=== PATIENT | female | born 1985 | race Caucasian/White ===

== ENCOUNTER 2019-03-12 19:32 | Emergency (ER) | payer MEDICAID ==
[~2019-03-12] VITALS: Ht 152.4 cm; Wt 59.0 kg
[~2019-03-12 19:32] MED LIST: CEFP200 PO; METR59TL; Zofran Odt8 MG SL
[2019-03-12] MEDS ORDERED: SERT25 PO (20:01)
[2019-03-12 20:39] LABS: Source, Urine Clean Catch
[2019-03-12 20:42] LABS: Bilirubin, Urine Neg (Neg); Blood, Urine 5+ (Neg); Glucose Qualitative, Urine Neg (Neg); Ketones, Urine 1+ (Neg); Leukocyte Esterase, Urine 3+ (Neg); Nitrite, Urine Pos (Neg); Protein, Urine 3+ (Neg); Specific Gravity, Urine 1.015 (1.003-1.022); Urobilinogen, Urine 1+ (Normal)
[2019-03-12 20:51] LABS: Appearance, Urine Cloudy (Clear); Color, Urine Amber (P-Yellow); White Blood Cells, Urine TNTC /hpf (0-5)
[2019-03-12 20:52] LABS: Bacteria Many /hpf; Squamous Epithelial Cells Mod /hpf (Few)
[2019-03-12] MEDS ORDERED: CEFD300 PO (21:28)
== END 2019-03-12 22:20 | disposition home or self-care (01) ==
LOC: ER 19:32
PROVIDERS: Physician Assistant
DX: N12 Tubulo-interstitial nephritis, not specified as acute or chronic (principal); N93.9 Abnormal uterine and vaginal bleeding, unspecified; F32.9 Major depressive disorder, single episode, unspecified; Z88.1 Allergy status to other antibiotic agents; Z79.899 Other long term (current) drug therapy
CPT/HCPCS: 81001; 87077; 87086; 87186; 96365; 99283-25; J0696

== ENCOUNTER → 2019-07-28 | Outpatient (CLI) | payer OTHER ==
[~2019-07-28] MED LIST changes: +CEFD300 PO; +SERT25 PO
== END | disposition home or self-care (01) ==
LOC: LAB 09:40 → LAB SHORT 09:40
DX: R30.0 Dysuria (principal)
CPT/HCPCS: 87077; 87086; 87186

== ENCOUNTER → 2021-07-13 | Outpatient (CLI) | payer OTHER ==
[2021-07-16 15:10] LABS: HPV 16 Negative (Negative); HPV 18 Negative (Negative); HPV OTHER HR TYPES Negative (Negative)
== END | disposition home or self-care (01) ==
LOC: LAB SHORT 08:50
PROVIDERS: Student in an Organized Health Care Education/Training Program
DX: Z09 Encounter for follow-up examination after completed treatment for conditions other than malignant neoplasm (principal); Z87.42 Personal history of other diseases of the female genital tract
CPT/HCPCS: 87624; 88175

== ENCOUNTER → 2022-11-01 | Outpatient (CLI) | payer OTHER ==
[2022-11-02 11:12] LABS: Candida species (DNA Probe) Negative (NEGATIVE); G. vaginalis (DNA Probe) Positive (NEGATIVE); T. vaginalis (DNA Probe) Negative (NEGATIVE)
== END | disposition home or self-care (01) ==
LOC: LAB 17:30 → LAB SHORT 17:30
PROVIDERS: Nurse Practitioner
DX: N89.8 Other specified noninflammatory disorders of vagina (principal)
CPT/HCPCS: 87480; 87510; 87660

== ENCOUNTER → 2023-08-03 | Outpatient (CLI) | payer OTHER ==
[2023-08-03 17:28] LABS: BASOPHILS ABSOLUTE AUTO 0.05 K/mm3 (0.00-0.23); BASOPHILS PERCENT AUTO 1 % (0-2); EOSINOPHILS PERCENT AUTO 4 % (0-6); Hematocrit 37.5 % (33.0-51.0); Hemoglobin 12.3 g/dL (11.5-16.0); IMMATURE GRAN ABSOLUTE AUTO 0.02 K/mm3 (0.00-0.10); IMMATURE GRAN PERCENT AUTO 0 % (0-1); LYMPHOCYTES ABSOLUTE AUTO 2.14 K/mm3 (0.84-5.20); LYMPHOCYTES PERCENT AUTO 25 % (21-46); MONOCYTES PERCENT AUTO 6 % (4-13); Mean Corpuscular HGB 29.1 pg (26.0-34.0); Mean Corpuscular HGB Conc 32.8 g/dL (31.5-36.5); Mean Corpuscular Volume 89 fL (80-100); Mean Platelet Volume 10.7 fL (9.1-12.4); NEUTROPHILS ABSOLUTE AUTO 5.68 K/mm3 (1.96-9.15); NEUTROPHILS PERCENT AUTO 65 % (41-73); Platelet Count 310 K/mm3 (150-400); RDW Coefficient Variation 13.2 % (11.7-14.2); RDW Standard Deviation 42.3 fL (35.1-46.3); Red Blood Cell Count 4.22 M/mm3 (3.80-5.20); White Blood Cell Count 8.69 K/mm3 (4.00-11.30)
[2023-08-03 17:57] LABS: Albumin, Blood 3.5 g/dL (3.4-5.0); Albumin/Globulin Ratio 0.8 (0.8-1.8); Bilirubin, Total 0.5 mg/dL (0.1-1.0); Bun/Creatinine Ratio 10.7 (12.0-20.0); Creatinine, Blood 0.56 mg/dL (0.40-1.00); Globulin, Blood 4.5 g/dL (2.2-4.0); Potassium, Blood 3.6 mmol/L (3.5-5.5)
== END | disposition home or self-care (01) ==
LOC: LAB SHORT 16:30
PROVIDERS: Family Medicine
DX: O20.9 Hemorrhage in early pregnancy, unspecified (principal); O99.891 Other specified diseases and conditions complicating pregnancy; M79.89 Other specified soft tissue disorders
CPT/HCPCS: 80053; 84702; 85025